=== PATIENT | male | born 1980 | race African-American/Black ===

== ENCOUNTER 2022-04-28 14:34 | Emergency (ER) | payer BC ==
[~2022-04-28] VITALS: Ht 177.8 cm; Wt 79.0 kg
[2022-04-28 15:59] VITALS: BP 161/113
== END 2022-04-28 16:01 | disposition home or self-care (01) ==
LOC: ER 14:34
DX: R55 Syncope and collapse (principal); M79.601 Pain in right arm
CPT/HCPCS: 99281